=== PATIENT | female | born 1990 | race Caucasian/White ===

== ENCOUNTER → 2023-12-21 06:21 | Day surgery (SDC) | payer OTHER, SELFPAY | LOC: GI 06:21 | PROVIDERS: ATTENDING PHYSICIAN Surgery | DX: K51.90 Ulcerative colitis, unspecified, without complications (principal); D12.5 Benign neoplasm of sigmoid colon; K64.4 Residual hemorrhoidal skin tags | CPT/HCPCS: 45385; 45380; 88305 ==

== ENCOUNTER → 2024-01-26 07:56 | Outpatient (REF) | payer OTHER, SELFPAY | LOC: WDC 07:56 | PROVIDERS: ATTENDING PHYSICIAN Obstetrics & Gynecology; FAMILY PHYSICIAN Emergency Medicine | DX: N63.20 Unspecified lump in the left breast, unspecified quadrant (principal) | CPT/HCPCS: 76642 ==

== ENCOUNTER 2024-08-19 06:33 | Day surgery (SDC) | payer OTHER, SELFPAY | END 2024-08-19 16:08 | disposition home or self-care (01) | LOC: GI 06:33 | PROVIDERS: ATTENDING PHYSICIAN Internal Medicine Gastroenterology | DX: K51.511 Left sided colitis with rectal bleeding (principal); K64.0 First degree hemorrhoids; R19.7 Diarrhea, unspecified | CPT/HCPCS: 45380; 88305 ==

== ENCOUNTER → 2024-08-25 11:45 | Outpatient (REF) | payer OTHER, SELFPAY | LOC: RAD 11:45 | PROVIDERS: ATTENDING PHYSICIAN Internal Medicine Gastroenterology; FAMILY PHYSICIAN Emergency Medicine | DX: R19.5 Other fecal abnormalities (principal) | CPT/HCPCS: 74022 ==

== ENCOUNTER 2024-12-29 06:14 | Outpatient (RCR) | payer OTHER, SELFPAY | END 2024-12-29 23:59 | disposition home or self-care (01) | LOC: RPT 06:14 | PROVIDERS: ATTENDING PHYSICIAN Emergency Medicine | DX: M75.41 Impingement syndrome of right shoulder (principal); M25.511 Pain in right shoulder; Z73.6 Limitation of activities due to disability; M62.81 Muscle weakness (generalized) | CPT/HCPCS: 97110; 97161 ==

== ENCOUNTER 2025-01-31 19:03 | Outpatient (RCR) | payer OTHER, SELFPAY | END 2025-01-31 23:59 | disposition home or self-care (01) | LOC: RPT 19:03 | PROVIDERS: ATTENDING PHYSICIAN Emergency Medicine | DX: M75.41 Impingement syndrome of right shoulder (principal); M25.511 Pain in right shoulder; Z73.6 Limitation of activities due to disability; M62.81 Muscle weakness (generalized) | CPT/HCPCS: 97110; 97112; 97140 ==

== ENCOUNTER 2025-03-01 16:11 | Outpatient (RCR) | payer OTHER, SELFPAY | END 2025-03-01 23:59 | disposition home or self-care (01) | LOC: RPT 16:11 | PROVIDERS: ATTENDING PHYSICIAN Emergency Medicine | DX: M75.41 Impingement syndrome of right shoulder (principal); M25.511 Pain in right shoulder; Z73.6 Limitation of activities due to disability; M62.81 Muscle weakness (generalized) | CPT/HCPCS: 97010; 97110; 97112 ==

== ENCOUNTER 2025-03-29 16:04 | Outpatient (RCR) | payer OTHER, SELFPAY | END 2025-03-29 23:59 | disposition home or self-care (01) | LOC: RPT 16:04 | PROVIDERS: ATTENDING PHYSICIAN Emergency Medicine | DX: M75.41 Impingement syndrome of right shoulder (principal); M25.511 Pain in right shoulder; Z73.6 Limitation of activities due to disability; M62.81 Muscle weakness (generalized) | CPT/HCPCS: 97010; 97110; 97112; 97140 ==

== ENCOUNTER → 2025-05-15 18:57 | Outpatient (REF) | payer OTHER, SELFPAY | LOC: WDC 18:57 | PROVIDERS: ATTENDING PHYSICIAN Student in an Organized Health Care Education/Training Program; FAMILY PHYSICIAN Nurse Practitioner Family | DX: Z12.31 Encounter for screening mammogram for malignant neoplasm of breast (principal) | CPT/HCPCS: 77063; 77067 ==

== ENCOUNTER 2025-05-18 06:19 | Day surgery (SDC) | payer OTHER, SELFPAY | END 2025-05-18 11:46 | disposition home or self-care (01) | LOC: GI 06:19 | PROVIDERS: ATTENDING PHYSICIAN Internal Medicine Gastroenterology; FAMILY PHYSICIAN Nurse Practitioner Family | DX: K50.80 Crohn's disease of both small and large intestine without complications (principal); K52.9 Noninfective gastroenteritis and colitis, unspecified; K64.9 Unspecified hemorrhoids; K52.89 Other specified noninfective gastroenteritis and colitis | CPT/HCPCS: 45380; 88305 ==